=== PATIENT | female | born 1955 | race Caucasian/White ===

== ENCOUNTER 2016-12-09 07:13 | Emergency (ER) | payer SELFPAY ==
[~2016-12-09] VITALS: Ht 160 cm; Wt 87.0 kg
[2016-12-09 07:20] VITALS: BP 170/95; PULSE 105; RESP 20; TEMP 99.3; O2SAT 92
[2016-12-09 07:39] VITALS: BP 143/93; PULSE 91; RESP 18; O2SAT 93
[2016-12-09] MEDS ORDERED: RESP: LIDOCAINE HCL 4% PF 5 ML NEB NEB ONE (07:45)
[2016-12-09] MEDS ORDERED: predniSONE 20 MG TAB PO ONE (07:45)
[2016-12-09] MEDS ORDERED: RESP: ALBUTEROL 2.5 MG/IPRATROPIUM 0.5 MG NEB (SCH) NEB ONE (07:45)
--- NOTE | 2016-12-09 07:46 | PD ---
HPI Chief Complaint: Cold / Flu Symptoms Time Seen by Provider: 07:35 Travel History International Travel<30 days: No Contact w/Intl Traveler<30days: No Traveled to known affect area: No History of Present Illness HPI The patient is a 61-year-old female who presents to the emergency department for cough and cold symptoms. The patient states her symptoms started yesterday with cough and congestion. The patient complains of a productive cough producing white mucous as well as chest congestion and wheezing. The patient does have a history of bronchitis but denies any history of pneumonia. The patient does state she smokes tobacco, but denies any known history of COPD or congestive heart failure. The patient denies any fever, myalgias, arthralgias, nausea, vomiting, diarrhea, or abdominal pain. The patient recently moved to [place], from [place], and does not have a primary physician. The patient's symptoms are moderate and there are no alleviating or exacerbating factors. PFSH Past Medical History ?: Not Social History Tobacco Use: Yes Allergies-Medications (Allergen,Severity, Reaction): Coded Allergies: No Known Allergies (Unverified , 12/09/16) Review of Systems Except as stated in HPI: all other systems reviewed are Neg General / Constitutional: No: Fever HENT: Positive: Congestion Cardiovascular: No: Chest Pain or Discomfort Respiratory: Positive: Cough, Shortness of Breath, Wheezing Gastrointestinal: No: Nausea, Vomiting, Diarrhea, Abdominal Pain Musculoskeletal: No: Myalgias, Arthralgias, Edema Physical Exam Narrative GENERAL: Awake, alert, pleasant 61 year-old female who appears her stated age and is in no acute respiratory distress. SKIN: Warm and dry. HEAD: Atraumatic. Normocephalic. EYES: Pupils equal and round. No scleral icterus. No injection or drainage. ENT: No nasal bleeding or discharge. Mucous membranes pink and moist. NECK: Trachea midline. No JVD. CARDIOVASCULAR: Regular rate and rhythm. No murmur appreciated. Heart rate in the 90s. RESPIRATORY: No accessory muscle use. Prolonged expiratory phase with late wheezes. GASTROINTESTINAL: Abdomen soft, non-tender, nondistended. No rebound tenderness. MUSCULOSKELETAL: No obvious deformities. No clubbing. No cyanosis. No edema. NEUROLOGICAL: Awake and alert. No obvious cranial nerve deficits. Motor grossly within normal limits. Normal speech. PSYCHIATRIC: Appropriate mood and affect; insight and judgment normal. Data Data Last Documented VS Vital Signs Date Time Temp Pulse Resp B/P Pulse Ox O2 Delivery O2 Flow Rate FiO2 12/09/16 08:05 93 21 12/09/16 07:39 20 Room Air 12/09/16 07:39 91 143/93 12/09/16 07:20 99.3 Orders Chest, Single Ap (12/09/16 ) Prednisone (Deltasone) (12/09/16 07:45) Albuterol-Ipratropium Neb (Duoneb Neb) (12/09/16 07:45) Lidocaine Pf 4% Neb (Lidocaine Pf 4% Neb (12/09/16 07:45) MDM Medical Decision Making Medical Screen Exam Complete: Yes Emergency Medical Condition: Yes Medical Record Reviewed: Yes Interpretation(s) Chest x-ray reveals normal examination Differential Diagnosis Differential diagnosis includes COPD exacerbation, reactive airway disease, bronchitis, pneumonia, congestive heart failure, pulmonary embolism, acute coronary syndrome, influenza. Narrative Course The patient was administered prednisone 60 mg orally and duo nebs 2 with respiratory lidocaine. The patient was placed on cardiac telemetry monitoring and continuous pulse oximetry monitoring. Chest x-ray was obtained. Chest x- ray reveals normal examination, no evidence of pneumonia. The patient appears to have bronchitis and will be treated with albuterol inhaler, prednisone, cough medicine, and Bactrim. Patient is advised to follow-up with her primary physician and return if symptoms worsen or progress. Diagnosis Primary Impression: Bronchitis Patient Instructions: General Instructions Additional Instructions: Medications as directed. Follow-up with your primary physician. Return if symptoms worsen or progress. Med/Other Pt SpecificInfo: Prescription(s) given Scripts Guaifenesin-Codeine Liq 100-10 Mg/5 Ml Soln10 Ml PO Q6H PRN (COUGH) #1 BOTTLE Ref 0 Prov:Chinmay Kang MD 12/09/16 Sulfamethoxazole-Trimethoprim (Bactrim DS)800-160 Mg Tab1 Tab PO BID #14 TAB Ref 0 Prov:Chinmay Kang MD 12/09/16 Albuterol 18 GM Inh (Ventolin Hfa 18 GM Inh)90 Mcg/Act Aer2 Puff INH Q4H PRN ( SHORTNESS OF BREATH) #1 INHALER Ref 0 Prov:Chinmay Kang MD 12/09/16 Prednisone (Deltasone)20 Mg Tab40 Mg PO DAILY 4 Days Ref 0 Prov:Chinmay Kang MD 12/09/16 Disposition: 01 DISCHARGE HOME Condition: Stable Chinmay Kang MD Dec 09, 2016 07:46
[2016-12-09 08:05] VITALS: O2SAT 93
--- NOTE | 2016-12-09 08:08 | RADHPO ---
EXAM DATE/TIME: 12/09/2016 08:02 [facility] COMPARISON: No previous studies available for comparison. INDICATIONS : Short of breath, cough MEDICAL HISTORY : None. SURGICAL HISTORY : None. ENCOUNTER: Initial ACUITY: 2 days PAIN SCORE: 0/10 LOCATION: Bilateral chest FINDINGS: A single view of the chest demonstrates the lungs to be symmetrically aerated without evidence of mas s, infiltrate or effusion. The cardiomediastinal contours are unremarkable. Osseous structures are intact. CONCLUSION: Normal examination. Clyde Cervantes MD on December 09, 2016 at 8:06 Board Certified Radiologist. This report was verified electronically.
[2016-12-09] MEDS ORDERED: VENTAER INH (08:25)
[2016-12-09] MEDS ORDERED: PRED-503 PO (08:25)
[2016-12-09] MEDS ORDERED: BACT800T5 PO (08:25)
[2016-12-09] MEDS ORDERED: GUAI100S5 PO (08:25)
[2016-12-09 08:40] VITALS: BP 160/75
== END 2016-12-09 08:42 | disposition home or self-care (01) ==
LOC: PHED 07:13
DX: J40 Bronchitis, not specified as acute or chronic (principal); R09.89 Other specified symptoms and signs involving the circulatory and respiratory systems; Z72.0 Tobacco use
CPT/HCPCS: 71010; 94664; 99283; J7512